=== PATIENT | female | born 1950 | race Caucasian/White ===

== ENCOUNTER 2017-11-06 07:05 | Day surgery (SDC) | payer OTHER, MEDICARE ==
[2017-11-06] MEDS ORDERED: LIDOCAINE 4% SOLUTION 50 ML BTL (09:40)
[2017-11-06] MEDS ORDERED: MIDAZOLAM 1 MG/ML 2 ML INJ (10:12)
[2017-11-06] MEDS ORDERED: FENTAnyl 50 MCG/ML VIAL (10:24)
== END 2017-11-06 11:53 | disposition home or self-care (01) ==
LOC: GIL 07:05
DX: K29.70 Gastritis, unspecified, without bleeding (principal); K21.0 Gastro-esophageal reflux disease with esophagitis
CPT/HCPCS: 43239; 88305; 88312

== ENCOUNTER 2018-08-20 06:47 | Day surgery (SDC) | payer OTHER ==
[2018-08-20] MEDS ORDERED: FENTAnyl 50 MCG/ML VIAL (09:03)
[2018-08-20] MEDS ORDERED: MIDAZOLAM 1 MG/ML 2 ML INJ (09:03)
== END 2018-08-20 12:22 | disposition home or self-care (01) ==
LOC: GIL 06:47
DX: K52.89 Other specified noninfective gastroenteritis and colitis (principal); K64.8 Other hemorrhoids
CPT/HCPCS: 45380; 88305